=== PATIENT | female | born 1960 | race Caucasian/White ===

== ENCOUNTER 2024-04-28 08:25 | Outpatient (REF) | payer MEDICARE, MEDICAID, SELFPAY ==
--- NOTE | 2024-04-28 09:10 | MHC.AU.MED ---
Medical Clearance for Hearing Instrumentation Date: 04/28/24 Patient Name: Pb Johnson Date of : 1960 Primary Care Provider: OLY Velasquez We have seen your patient on 04/28/24 and have determined that they are a candidate for amplification (See accompanying report). Specifically, they would benefit from: Hearing aid use in both ears There is a statute that addresses Medical Evaluation Requirements prior to fitting a patient with a hearing aid. According to [place] statute 265 CMR:6.03(1), (a) General. Except as provided in 265 CMR 6.03(1)(b), a acid condenser shall not sell a hearing aid unless the prospective user has presented to the acid condenser a written statement signed by a licensed physician that states that the patient's hearing loss has been medically evaluated and the patient may be considered a candidate for a hearing aid. The medical evaluation must have taken place within the preceding six months. Please note: Due to the [place] Statute referenced above, we cannot accept a signature other than that of a licensed physician. DUPLICATOR PUNCH SET UP OPERATOR and PA signatures cannot be accepted. I am in agreement with the above recommendation. There is no medical contraindication for hearing instrumentation. Physician Signature Date Physician Name (Printed)
--- NOTE | 2024-04-28 10:28 | MHC.AU.HA1 ---
Hearing Aid Evaluation Date of Visit: 04/28/24 Historical Information: Description of Hearing: Right Ear: Severe to profound sensorineural hearing loss Left Ear: Mild sloping to profound sensorineural hearing loss Summary: Pb has reportedly had asymmetric hearing loss for >25 years. She was evaluated by an ENT at that time and more recently at [facility] with no significant findings. Dr. Cooper reportedly recommended a CI, which Pb described as a magnet. However, she does not want to pursue surgery. Her records have been requested from [facility] but are unavailable at this time for review. Pb would like to trial hearing aids and reported that nobody has given them to her for many years. Her hearing has reportedly worsened and she is now experiencing hearing difficulties in a majority of her listening environments. Pb opted for rechargeable RITE with c-shell. Impressions taken, bilaterally, without incident (in hold drawer). Hearing Aid Prescription: Based on the individual?s shared listening needs, communication environments, dexterity, desire for connectivity, and personal preferences, the following prescription for amplification has been made: Right ear: Make, Model, Color: Phonak Audeo L70-R Color: Sand Beige Battery Size: Rechargeable Manager Continuous Improvement/Slim Tube: 1UP Type of Earmold/Dome/CShell/SlimTip: c-shell Left ear: Left ear prescription to be same as Right Hearing Aid above: Make, Model, Color: Phonak Audeo L70-R Color: Sand Beige Battery Size: Rechargeable Manager Continuous Improvement/Slim Tube: 1P Type of Earmold/Dome/CShell/SlimTip: c-shell Accessories/Assistive Technology: Stave And Bolt Equalizer Plan of Care: Patient wishes to purchase hearing aids as prescribed Action Taken/Action Needed: Medical Clearance to be requested from PCP/ENT. Hearing Instrument Fitting to be scheduled when materials arrive Primary Diagnosis: H90.3 Bilateral Sensorineural Hearing Loss Signature: Provider: Sarah Marie, [facility]
== END 2024-04-28 08:26 | disposition home or self-care (01) ==
LOC: HO.SH 08:25
PROVIDERS: PCP Nurse Practitioner Family; Visit Provider Nurse Practitioner Family
DX: H90.3 Sensorineural hearing loss, bilateral (principal)
CPT/HCPCS: 92557; 92567; 92591; V5275

== ENCOUNTER 2024-05-31 13:10 | Outpatient (REF) | payer MEDICARE, MEDICAID, SELFPAY ==
--- NOTE | 2024-05-31 13:54 | MHC.AU.HA2 ---
Hearing Instrument Fitting- Adult- Binaural Date of Visit: 05/31/24 Hearing Instruments Dispensed: Right Ear: Make, Model, Color, Serial Number: Gaby Valadez L70-R SN: [id number] Color: Sand Beige Bottom Turning Lathe Tender Repair Warranty: 06/20/2027 Bottom Turning Lathe Tender Loss and Damage Warranty: 06/20/2027 [facility] Service Plan: 05/31/2025 Battery Size: Rechargeable News Broadcaster/Slim Tube: 1UP Earmold/Dome/CShell/SlimTip: c-shell SN: [id number] Seble: 09/18/2024 Type of Wax Guard: CeruStop Left Ear: Corey, Model, Color, Serial Number: Gaby Valadez L70-R SN: [id number] Color: Sand Beige Bottom Turning Lathe Tender Repair Warranty: 06/20/2027 Bottom Turning Lathe Tender Loss and Damage Warranty: 06/20/2027 [facility] Service Plan: 05/31/2025 Battery Size: Rechargeable News Broadcaster/Slim Tube: 1P Earmold/Dome/CShell/SlimTip: c-shell SN: [id number] Seble: 09/18/2024 Type of Wax Guard: CeruStop Accessories/Assistive Technology: Phonak shipping lead Ease SN: [id number] Summary of Fitting: Ran feedback analyzer and real ear measures. Decreased overall gain to 90% due to perceived loudness and decreased lows even more due to sound of own voice, especially on right side. Pb inquired about only wearing left hearing aid. Encouraged to trial both for first few weeks to give herself time to acclimate. Explained importance of daily, consistent use in acclimating to hearing aids. Discussed care, use, and rechargeability including manually turning on/off, changing wax guards, and VC use. Paired to cell phone. Practiced insertion/removal. Pb grateful to finally have hearing aids and motivated to wear and adjust to them. Recommendations: A hearing instrument follow-up was scheduled. Diagnosis Code(s): Primary Diagnosis: H90.3 Bilateral Sensorineural Hearing Loss Signature: Provider: Sarah Marie, [facility]
== END 2024-05-31 13:11 | disposition home or self-care (01) ==
LOC: HO.HAP 13:10
PROVIDERS: Visit Provider Nurse Practitioner Family
DX: Z46.1 Encounter for fitting and adjustment of hearing aid (principal); H90.3 Sensorineural hearing loss, bilateral
CPT/HCPCS: V5011; V5020; V5160; V5261; V5264

== ENCOUNTER 2024-06-16 13:32 | Outpatient (REF) | payer MEDICARE, MEDICAID, SELFPAY | END 2024-06-16 13:33 | disposition home or self-care (01) | LOC: HO.HAP 13:32 | PROVIDERS: Visit Provider Nurse Practitioner Family | DX: Z13.89 Encounter for screening for other disorder (principal) ==

== ENCOUNTER 2024-07-11 15:31 | Outpatient (REF) | payer MEDICARE, MEDICAID, SELFPAY | END 2024-07-11 15:32 | disposition home or self-care (01) | LOC: HO.HAP 15:31 | PROVIDERS: Visit Provider Nurse Practitioner Family | DX: Z46.1 Encounter for fitting and adjustment of hearing aid (principal); H90.3 Sensorineural hearing loss, bilateral | CPT/HCPCS: V5011; V5020; V5160; V5259; V5266 ==

== ENCOUNTER 2024-08-04 13:00 | Outpatient (REF) | payer MEDICARE, MEDICAID, SELFPAY | END 2024-08-04 13:01 | disposition home or self-care (01) | LOC: HO.HAP 13:00 | PROVIDERS: Visit Provider Nurse Practitioner Family | DX: Z13.89 Encounter for screening for other disorder (principal) ==

== ENCOUNTER 2024-09-07 08:33 | Outpatient (REF) | payer MEDICARE, MEDICAID, SELFPAY | END 2024-09-07 08:34 | disposition home or self-care (01) | LOC: HO.HAP 08:33 | PROVIDERS: Visit Provider Nurse Practitioner Family | DX: Z13.89 Encounter for screening for other disorder (principal) ==

== ENCOUNTER 2024-10-05 14:02 | Outpatient (REF) | payer MEDICARE, MEDICAID, SELFPAY | END 2024-10-05 14:03 | disposition home or self-care (01) | LOC: HO.HAP 14:02 | PROVIDERS: Visit Provider Nurse Practitioner Family | DX: Z46.1 Encounter for fitting and adjustment of hearing aid (principal); H90.3 Sensorineural hearing loss, bilateral | CPT/HCPCS: V5266 ==

== ENCOUNTER 2024-11-07 15:30 | Outpatient (REF) | payer MEDICARE, MEDICAID, SELFPAY | END 2024-11-07 15:31 | disposition home or self-care (01) | LOC: HO.HAP 15:30 | PROVIDERS: Visit Provider Nurse Practitioner Family | DX: Z13.89 Encounter for screening for other disorder (principal) ==